=== PATIENT | female | born 1955 | race Caucasian/White ===

== ENCOUNTER → 2016-11-06 | Outpatient (CLI) | payer OTHER ==
[~2016-11-06] MED LIST: AMLO2.5T PO; FLAX100031 PO; SMV20T PO; SPIR100T37 PO; VITA-198 PO
--- NOTE | 2016-11-06 11:57 | Diagnostic Imaging Report ---
EXAMINATION: Bilateral screening mammogram with a Computer Aided Detection (CAD) system. INDICATION: Screening. PERSONAL HISTORY: No current complaints stated on the questionnaire. COMPARISON: 09/06/2015. FINDINGS: There is increased density of asymmetry measuring 1 cm in the lateral aspect of the right breast. No definite correlate on the MLO view. The left breast demonstrates no definite change. IMPRESSION: Focal compression views and ultrasound evaluation for lateral right breast asymmetries would be recommended. ACR BI-RADS Category 0: Incomplete. (Needs additional imaging evaluation). Result letter will be mailed to the patient. Note: At least 10% of breast cancer is not imaged by mammography. Dictated by: Dictated on workstation # [id number]
== END ==
LOC: RAD 09:38
PROVIDERS: ATTEND Nurse Practitioner Community Health
DX: Z12.31 Encounter for screening mammogram for malignant neoplasm of breast (principal)
CPT/HCPCS: 77067

== ENCOUNTER → 2016-12-20 | Outpatient (CLI) | payer OTHER ==
--- NOTE | 2016-12-20 13:40 | Diagnostic Imaging Report ---
EXAMINATION: Right breast diagnostic mammogram with a Computer Aided Detection (CAD) system. INDICATION: Asymmetries in the upper outer aspect of the right breast. FINDINGS: Focal compression views demonstrate dense background parenchyma with no significant or definite abnormality on the CC projection. The lateral projection upper asymmetry is persistent on focal compression views, however. IMPRESSION: Persistent asymmetry along the upper aspect of the right breast. An ultrasound evaluation is pending. ACR BI-RADS Category 0: Incomplete. (Needs additional imaging evaluation). Result letter will be mailed to the patient. Note: At least 10% of breast cancer is not imaged by mammography. Dictated by: Dictated on workstation # [id number]
--- NOTE | 2016-12-20 14:20 | Diagnostic Imaging Report ---
Right breast ultrasound. INDICATION: Asymmetry on mammography persistent in the upper breast. FINDINGS: The four quadrants and retroareolar region of the right breast were scanned with no underlying abnormality seen. IMPRESSION: Negative study. The upper right breast asymmetry could be related to summation effect of parenchyma. Diagnostic mammogram in six months is recommended to ensure stability or resolution. ACR BI-RADS Category 3: Probably benign findings. Dictated by: Dictated on workstation # [id number]
== END ==
LOC: RAD 12:54
PROVIDERS: ATTEND Nurse Practitioner Community Health
DX: R92.8 Other abnormal and inconclusive findings on diagnostic imaging of breast (principal)
CPT/HCPCS: 76641

== ENCOUNTER → 2017-06-13 | Outpatient (CLI) | payer OTHER ==
--- NOTE | 2017-06-13 09:27 | Diagnostic Imaging Report ---
EXAMINATION: Right breast diagnostic mammogram with tomography. The current study was also evaluated with a Computer Aided Detection (CAD) system. COMPARISON: 11/06/2016. INDICATION: Followup asymmetry in the outer aspect of the right breast. FINDINGS: The previously seen lateral right breast asymmetry is not seen on the current exam, suggestive of summation artifact of parenchyma on the previous study. No adverse development. IMPRESSION: The previously seen asymmetry is less prominent on the current exam suggesting artifact of parenchyma. Annual screening mammography is recommended with the next bilateral exam due in 2018. ACR BI-RADS Category 2: Benign findings. Result letter will be mailed to the patient. Note: At least 10% of breast cancer is not imaged by mammography. Dictated by: Dictated on workstation # [id number]
== END ==
LOC: RAD 07:59
PROVIDERS: ATTEND Nurse Practitioner Community Health
DX: R92.8 Other abnormal and inconclusive findings on diagnostic imaging of breast (principal)

== ENCOUNTER 2017-10-16 05:46 | Outpatient (CLI) | payer OTHER ==
[~2017-10-16] VITALS: Ht 182.9 cm; Wt 108.4 kg
--- NOTE | 2017-10-16 12:27 | HISTORY AND PHYSICAL ---
DATE OF SERVICE: 10/15/17 DATE OF ADMISSION: 10/16/2017. HISTORY OF PRESENT ILLNESS: The patient is a 62-year-old white female referred by Rupinder Orellana from for screening colonoscopy. She had one other screening colonoscopy 11 years ago in 2006 at which time she had 2 diminutive polyps removed hyperplastic in nature. She is deemed to be of average risk and she is not aware of any family history for colon cancer or colon polyps. She denies any problems with melena or bright red blood per rectum and denies weight loss, abdominal pain or bowel habit change. PAST MEDICAL HISTORY: Significant for hypertension and hyperlipidemia with no known history of coronary artery disease. She also has history of allergic rhinitis. MEDICATION ON ADMISSION: Include Coreg 6.25 mg b.i.d., Lipitor 20 mg daily, multiple vitamin daily and Zyrtec 10 mg daily. PAST SURGICAL HISTORY: Significant for tonsillectomy and adenoidectomy, appendectomy, laparoscopic cholecystectomy, total abdominal hysterectomy and bilateral salpingo-oophorectomy, anterior-posterior repair, and right knee arthroscopy in the past. 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 She has no past smoking history and rare alcohol intake. FAMILY HISTORY: Father of lung cancer at the age of 80 and was a heavy smoker. Mother at age of 84 of complications from pneumonia. PHYSICAL EXAMINATION: GENERAL: Reveals a well appearing white female in no acute distress. VITAL SIGNS: Blood pressure 142/86, heart rate 72 and regular. HEENT: Unremarkable. Sclerae nonicteric. She is a Mallampati class 2 oropharyngeal configuration. NECK: Revealed no JVD, adenopathy or bruits. CHEST: Clear to auscultation. CARDIOVASCULAR: Revealed a regular rate and rhythm without murmur, S3 or S4. ABDOMEN: Soft, supple without mass, organomegaly or tenderness. No bruits are noted. Bowel sounds are noted in all four quadrants. EXTREMITIES: Revealed no cyanosis, clubbing or edema. ASSESSMENT AND PLAN: 1. The patient is set up for screening colonoscopy on 10/23/2017. 2. Prep instructions with the Suprep kit were given and questions were answered. I thank you for the referral of this pleasant lady. Job ID: [id number] DocumentID: [id number] Dictated Date: 10/16/2017 11:45:02 Surplus Property Disposal Agent Date: 10/16/2017 12:27:28 Dictated By: CHRISTIANNE SANDOVAL MD MTDD
[2017-10-16] MEDS ORDERED: CARV6.25 PO (13:50)
[2017-10-16] MEDS ORDERED: ATOR20TA49 PO (13:50)
[2017-10-16] MEDS ORDERED: ASPI-999 PO (13:50)
[2017-10-16] MEDS ORDERED: CETI10TA20 PO (13:50)
== END 2017-10-16 13:54 ==
LOC: PREOP 05:46
PROVIDERS: ATTEND Internal Medicine
DX: Z01.818 Encounter for other preprocedural examination (principal); Z12.11 Encounter for screening for malignant neoplasm of colon

== ENCOUNTER → 2017-11-19 | Outpatient (CLI) | payer OTHER ==
[~2017-11-19] MED LIST changes: +ASPI-999 PO; +ATOR20TA49 PO; +CARV6.25 PO; +CETI10TA20 PO
--- NOTE | 2017-11-19 15:21 | Diagnostic Imaging Report ---
INDICATION: Routine screening. COMPARISON: 09/06/2015 and 06/18/2013. TECHNIQUE: Bilateral CC and MLO 3D mammography was performed. The current study was also evaluated with a Computer Aided Detection (CAD) system. FINDINGS: Scattered fibroglandular densities are identified bilaterally. The parenchymal pattern appears stable. No discrete mass or malignant appearing microcalcifications are seen. The axillae are unremarkable. IMPRESSION: No mammographic features suspicious for malignancy are identified. ACR BI-RADS Category 1: Negative. Result letter will be mailed to the patient. Note: At least 10% of breast cancer is not imaged by mammography. Dictated by: Dictated on workstation # [id number]
== END ==
LOC: RAD 08:05
PROVIDERS: ATTEND Nurse Practitioner Community Health
DX: Z12.31 Encounter for screening mammogram for malignant neoplasm of breast (principal)
CPT/HCPCS: 77067